=== PATIENT | female | born 1980 | race African-American/Black ===

== ENCOUNTER 2024-03-17 20:11 | Emergency (ER) | payer BC ==
[~2024-03-17] VITALS: Ht 175.3 cm; Wt 68.0 kg
[2024-03-17] MEDS ORDERED: HYDR-4077 PO (20:31)
[2024-03-17] MEDS ORDERED: ATOR40TA PO (20:31)
[2024-03-17] MEDS ORDERED: AMLO10TA59 PO (20:31)
[2024-03-17] MEDS ORDERED: CLOP75TA33 PO (20:31)
[2024-03-17] MEDS ORDERED: ASPI81TA31 PO (20:31)
[2024-03-17 20:41] LABS: BASOPHILS # (AUTO) 0.1 K/UL (0.0-0.2); BASOPHILS % (AUTO) 1.2 % (0.0-2.0); EOSINOPHILS # (AUTO) 0.6 K/uL (0.0-0.7); EOSINOPHILS % (AUTO) 6.5 % (0.0-7.0); HEMATOCRIT 37.6 % (31.2-41.9); HEMOGLOBIN 12.6 g/dL (10.9-14.3); LYMPHOCYTES # (AUTO) 3.3 K/uL (0.8-4.8); MEAN CORPUSCULAR HEMOGLOBIN 30.6 uug (24.7-32.8); MEAN CORPUSCULAR HGB CONC 34 g/dL (32.3-35.6); MEAN CORPUSCULAR VOLUME 91.3 fL (75.5-95.3); MONOCYTES # (AUTO) 0.8 K/uL (0.1-1.30); MONOCYTES % (AUTO) 8.5 % (0.0-11.0); NEUTROPHILS # (AUTO) 4.8 K/uL (1.8-8.9); NEUTROPHILS % (AUTO) 49.8 % (38.5-71.5); PLATELET COUNT (AUTO) 290 K/uL (179-408); RED BLOOD CELL COUNT(AUTO) 4.12 MIL/uL (3.63-4.92); RED CELL DISTRIBUTION WIDTH 14.1 % (12.3-17.7); WHITE BLOOD COUNT (AUTO) 9.6 K/uL (3.8-11.8)
[2024-03-17 20:45] LABS: DIFFERENTIAL COMMENT 1
[2024-03-17] MEDS ORDERED: METOCLOPRAMIDE HCL 10 MG/2 ML VIAL ONE (20:45)
[2024-03-17 20:51] LABS: CALCIUM 8.8 mg/dL (8.5-10.1); CARBON DIOXIDE 27 mmol/L (21-32); CHLORIDE 104 mmol/L (98-107); CREATININE 0.8 mg/dL (0.6-1.3); GLUCOSE 110 mg/dL (74-106); POTASSIUM 3.3 mmol/L (3.5-5.1); SODIUM SERUM 142 mmol/L (136-145); UREA NITROGEN, BLOOD 20 mg/dL (7-18)
[2024-03-17 20:59] LABS: ALANINE AMINOTRANSFERASE 27 U/L (14-59); ALBUMIN 3.7 g/dL (3.4-5.0); ALKALINE PHOSPHATASE 106 U/L (50-136); ASPARTATE AMINOTRANSFERASE 23 U/L (15-37); BILIRUBIN,DIRECT 0.2 mg/dL (0.0-0.2); BILIRUBIN,TOTAL 0.5 mg/dL (0.2-1.0); TOTAL PROTEIN, SERUM 7.8 g/dL (6.4-8.2)
[2024-03-17] MEDS: METOCLOPRAMIDE HCL 10 MG/2 ML VIAL IV ONE (21:00)
[2024-03-17] MEDS ORDERED: HYDROMORPHONE 1 MG/1 ML DISP.SYRIN IV ONE (22:00)
[2024-03-17] MEDS: ACETAMINOPHEN 500 MG TABLET PO ONE (22:17)
[2024-03-17] MEDS ORDERED: SWABABLE VALVE TRANSFER SET EA MC ONE (23:02)
[2024-03-17] MEDS ORDERED: IOHEXOL 350 100 ML INFUS..BTL ONE (23:02)
[2024-03-17] MEDS ORDERED: IV NORMAL SALINE 250 ML IV ONE (23:02)
[2024-03-17 23:30] VITALS: BP 120/86; TEMP 207.5; O2SAT 98
== END 2024-03-17 22:30 | disposition left against medical advice (07) ==
LOC: ER 20:11
DX: R51.9 Headache, unspecified (principal); R07.9 Chest pain, unspecified; E78.5 Hyperlipidemia, unspecified; I10 Essential (primary) hypertension; Z79.02 Long term (current) use of antithrombotics/antiplatelets; Z79.82 Long term (current) use of aspirin; Z86.73 Personal history of transient ischemic attack (TIA), and cerebral infarction without residual deficits
CPT/HCPCS: 99285; 71045; 80076; 80048; 85025; 85730; 84484; 36415; 93005; Q9967; A4606; A4663; J2765